=== PATIENT | female | born 2000 | race Caucasian/White ===

== ENCOUNTER 2021-07-13 19:49 | Emergency (ER) | payer OTHER, SELFPAY ==
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
[2021-07-13 20:06] VITALS: BP 144/95; PULSE 81; RESP 18; TEMP 36.8; O2SAT 100
== END 2021-07-13 20:27 | disposition home or self-care (01) ==
PROVIDERS: Emergency Provider Nurse Practitioner; PCP Nurse Practitioner Adult Health
DX: S09.92XA Unspecified injury of nose, initial encounter (principal); W50.0XXA Accidental hit or strike by another person, initial encounter
CPT/HCPCS: 70160; 99213; G0463